=== PATIENT | female | born 1960 | race Caucasian/White ===

== ENCOUNTER 2017-11-27 21:46 | Emergency (ER) | payer SELFPAY | END 2017-11-27 23:30 | disposition left against medical advice (07) | LOC: E/R 21:46 | DX: Z53.21 Procedure and treatment not carried out due to patient leaving prior to being seen by health care provider (principal) ==

== ENCOUNTER 2018-11-22 05:59 | Day surgery (SDC) | payer OTHER ==
[2018-11-22] MEDS ORDERED: FENTAnyl 50 MCG/ML VIAL (08:08)
[2018-11-22] MEDS ORDERED: MIDAZOLAM 1 MG/ML 2 ML INJ (08:08)
== END 2018-11-22 08:49 | disposition home or self-care (01) ==
LOC: GIL 05:59
DX: K29.50 Unspecified chronic gastritis without bleeding (principal); K44.9 Diaphragmatic hernia without obstruction or gangrene; K21.9 Gastro-esophageal reflux disease without esophagitis
CPT/HCPCS: 43239; 88305; 88312